=== PATIENT | male | born 1960 | race Caucasian/White ===

== ENCOUNTER 2016-12-09 00:48 | Emergency (ER) | payer OTHER, SELFPAY ==
[2016-12-09] MEDS ORDERED: METAL LOCK LOOP XX ONE ×2 (00:59→01:11)
[2016-12-09] MEDS ORDERED: NS 1,000 ML IV ONE ×2 (01:45→02:30)
[2016-12-09 02:06] LABS: ALBUMIN/GLOBULIN RATIO 1.29 (1.00-1.93); ALKALINE PHOSPHATASE 91 U/L (45-117); ALT/SGPT 39 U/L (12-78); AMYLASE 59 U/L (25-115); ANION GAP 9 MEQ/L (8-16); AST/SGOT 25 U/L (15-37); BASO # 0.1 K/mm3 (0.0-0.2); BASO % 0.9 % (0.0-1.0); BILIRUBIN,DIRECT 0.3 MG/DL (0.0-0.2); BILIRUBIN,TOTAL 2.5 MG/DL (0.2-1.0); BLOOD UREA NITROGEN 18 MG/DL (7-18); CALCIUM LEVEL 8.6 MG/DL (8.5-10.1); CARBON DIOXIDE LEVEL 25 MEQ/L (21-32); CHLORIDE LEVEL 106 MEQ/L (98-107); CREATININE FOR GFR 1.07 MG/DL (0.70-1.30); EOS # 0.2 K/mm3 (0.0-0.50); EOS % 1.5 % (0.0-3.0); GLOMERULAR FILTRATION RATE > 60.0 (>56); GLUCOSE, FASTING 150 MG/DL (70-105); LARGE UNSTAINED CELL # 0.3 K/mm3 (0.0-0.4); LARGE UNSTAINED CELL % 2.2 % (0.0-4.0); LYMPH # 1.7 K/mm3 (1.5-4.5); LYMPH % 11.5 % (24.0-44.0); MEAN CORPUSCULAR HEMOGLOBIN 30.4 pg (27.0-33.0); MEAN CORPUSCULAR HGB CONC 34.6 g/dl (32.0-36.5); MEAN CORPUSCULAR VOLUME 87.8 fl (80.0-96.0); MONO # 0.6 K/mm3 (0.0-0.8); MONO % 3.9 % (0.0-5.0); NEUTROPHILS # 11.7 K/mm3 (1.8-7.7); PLATELET COUNT, AUTOMATED 122 k/mm3 (150-450); POTASSIUM SERUM 3.4 MEQ/L (3.5-5.1); RED CELL DISTRIBUTION WIDTH 12.9 % (11.5-14.5); SODIUM LEVEL 140 MEQ/L (136-145); TOTAL PROTEIN 7.1 GM/DL (6.4-8.2); WHITE BLOOD COUNT 14.6 K/mm3 (4.0-10.0)
[2016-12-09] MEDS ORDERED: POTASSIUM CHLORIDE 10 MEQ SR TABLET PO ONE (02:30)
[2016-12-09] MEDS ORDERED: ZOFR4TAB3 PO (02:38)
[2016-12-09 05:00] VITALS: BP 116/66
== END 2016-12-09 05:12 | disposition home or self-care (01) ==
LOC: M ED 00:48 → EDBD 00:48 → M ED 05:12
DX: A08.4 Viral intestinal infection, unspecified (principal); I10 Essential (primary) hypertension; E78.5 Hyperlipidemia, unspecified; Z87.891 Personal history of nicotine dependence; Z88.0 Allergy status to penicillin